=== PATIENT | female | born 1995 | race Caucasian/White ===

== ENCOUNTER 2016-10-10 00:30 | Emergency (ER) | payer OTHER ==
[2016-10-10 01:24] LABS: BILIRUBIN NEGATIVE (NEGATIVE); BLOOD NEGATIVE Ery/uL (NEGATIVE); CLARITY CLEAR (CLEAR); COLOR YELLOW (YELLOW); GLUCOSE (U) NORMAL (NORMAL); KETONE (U) NEGATIVE (NEGATIVE); LEUKOCYTES NEGATIVE Leu/uL (NEGATIVE); NITRITE NEGATIVE (NEGATIVE); PROTEIN NEGATIVE (NEGATIVE); SPECIFIC GRAVITY 1.025 (1.001-1.030); UROBILINOGEN 0.2 mg/dL (0.2-1.0); pH 6.5 (5.0-9.0)
[2016-10-10 01:32] LABS: BASOPHIL 0.3 % (0-2); HCT 41.7 % (37.0-47.0); HGB 14.3 g/dl (12.5-16.0); LYMPHOCYTE 20.9 % (15-48); MCH 31.5 pg (25.0-31.0); MCHC 34.3 g/dL (32.0-36.0); MCV 91.9 fL (78.0-100.0); MPV 10.7 fL (6.0-9.5); NEUTROPHIL 69.8 % (41-80); PLT 256 K/uL (150-400); RBC 4.54 M/uL (4.20-5.40); RDW 12.5 % (11.5-14.0); WBC 7.9 K/uL (4.0-10.5)
[2016-10-10 01:54] LABS: CREATININE 0.8 mg/dL (0.5-1.0); POTASSIUM 3.7 mmol/L (3.5-5.1)
== END 2016-10-10 02:25 | disposition home or self-care (01) ==
LOC: FER 00:30
PROVIDERS: Emergency Medicine
DX: R42 Dizziness and giddiness (principal); R55 Syncope and collapse; R11.2 Nausea with vomiting, unspecified
CPT/HCPCS: 36415; 80048; 81003; 85025

== ENCOUNTER 2020-08-27 19:13 | Emergency (ER) | payer OTHER ==
[~2020-08-27 19:13] MED LIST: ZOFRAN8 MG PO
== END 2020-08-27 20:35 | disposition home or self-care (01) ==
LOC: FER 19:13
DX: R25.2 Cramp and spasm (principal); F17.210 Nicotine dependence, cigarettes, uncomplicated
CPT/HCPCS: 99283

== ENCOUNTER 2021-02-20 21:08 | Emergency (ER) | payer OTHER ==
[2021-02-20 22:21] LABS: BASOPHIL 0.4 % (0-2); EOSINOPHIL 1.2 % (0-5); HCT 38.1 % (37.0-47.0); HGB 12.8 g/dl (12.5-16.0); LYMPHOCYTE 21.9 % (15-48); MCH 30.5 pg (25.0-31.0); MCHC 33.6 g/dL (32.0-36.0); MCV 90.9 fL (78.0-100.0); MONOCYTE 9.8 % (0-12); MPV 10.8 fL (6.0-9.5); NEUTROPHIL 66.5 % (41-80); NRBC 0; PLT 240 K/uL (150-400); RBC 4.19 M/uL (4.20-5.40); RDW 12.6 % (11.5-14.0); WBC 8.5 K/uL (4.0-10.5)
[2021-02-20 22:33] LABS: INR 1.14 (0.9-1.2); PTT 28.1 SECONDS (24.4-34.7)
[2021-02-20 22:35] LABS: D-DIMER < 0.27 ug/mLFEU (0.00-0.41)
[2021-02-20 22:42] LABS: ALBUMIN 3.9 g/dL (3.4-5.0); BILIRUBIN - TOTAL 0.2 mg/dL (0.2-1.0); BUN/CREAT RATIO (CALC) 16.7 RATIO; CREATININE 0.72 mg/dL (0.51-0.95); GLOBULIN (CALCULATION) 3.4 g/dL; POTASSIUM 3.7 mmol/L (3.5-5.1); TOTAL PROTEIN 7.3 g/dL (6.4-8.2)
[2021-02-20] MEDS ORDERED: ZPAK PO (23:37)
[2021-02-20] MEDS ORDERED: MEDROL 4MG DOSEP4 MG PO (23:37)
== END 2021-02-20 23:55 | disposition home or self-care (01) ==
LOC: FER 21:08
PROVIDERS: Emergency Medicine
DX: R07.89 Other chest pain (principal); F17.210 Nicotine dependence, cigarettes, uncomplicated
CPT/HCPCS: 36415; 71045; 80053; 84484; 85025; 85379; 85610; 85730; 93005

== ENCOUNTER 2021-04-09 16:25 | Emergency (ER) | payer OTHER ==
[~2021-04-09 16:25] MED LIST changes: +MEDROL 4MG DOSEP4 MG PO; +ZPAK PO
[2021-04-09 18:11] LABS: BASOPHIL 0.2 % (0-2); BILIRUBIN NEGATIVE (NEGATIVE); BLOOD NEGATIVE Ery/uL (NEGATIVE); CLARITY CLEAR (CLEAR); COLOR YELLOW (YELLOW); EOSINOPHIL 0.5 % (0-5); GLUCOSE (U) NORMAL (NORMAL); HCT 37.5 % (37.0-47.0); HGB 12.5 g/dl (12.5-16.0); LEUKOCYTES NEGATIVE Leu/uL (NEGATIVE); LYMPHOCYTE 17.6 % (15-48); MCH 30.3 pg (25.0-31.0); MCHC 33.3 g/dL (32.0-36.0); MCV 90.8 fL (78.0-100.0); MONOCYTE 7.2 % (0-12); MPV 10.7 fL (6.0-9.5); NEUTROPHIL 74.2 % (41-80); NITRITE NEGATIVE (NEGATIVE); NRBC 0; PLT 237 K/uL (150-400); PROTEIN NEGATIVE (NEGATIVE); RBC 4.13 M/uL (4.20-5.40); RDW 13.3 % (11.5-14.0); SPECIFIC GRAVITY 1.025 (1.001-1.030); UROBILINOGEN 0.2 mg/dL (0.2-1.0); WBC 9.1 K/uL (4.0-10.5)
[2021-04-09 18:28] LABS: BUN/CREAT RATIO (CALC) 16.2 RATIO; CREATININE 0.68 mg/dL (0.51-0.95); POTASSIUM 3.7 mmol/L (3.5-5.1)
== END 2021-04-09 19:30 | disposition home or self-care (01) ==
LOC: FER 16:25
PROVIDERS: Nurse Practitioner Family
DX: O99.891 Other specified diseases and conditions complicating pregnancy (principal); R10.2 Pelvic and perineal pain
CPT/HCPCS: 36415; 80048; 81003; 84702; 85025; 99284

== ENCOUNTER 2021-09-07 12:05 | Emergency (ER) | payer OTHER ==
[2021-09-07 12:47] LABS: BILIRUBIN NEGATIVE (NEGATIVE); BLOOD NEGATIVE Ery/uL (NEGATIVE); CLARITY CLEAR (CLEAR); COLOR YELLOW (YELLOW); GLUCOSE (U) NORMAL (NORMAL); LEUKOCYTES NEGATIVE Leu/uL (NEGATIVE); NITRITE NEGATIVE (NEGATIVE); PROTEIN NEGATIVE (NEGATIVE); UROBILINOGEN 0.2 mg/dL (0.2-1.0)
[2021-09-07 12:47] LABS: BASOPHIL 0.3 % (0-2); EOSINOPHIL 0.7 % (0-5); HCT 39.9 % (37.0-47.0); HGB 13.4 g/dl (12.5-16.0); LYMPHOCYTE 20.2 % (15-48); MCHC 33.6 g/dL (32.0-36.0); MCV 92.4 fL (78.0-100.0); MONOCYTE 8.2 % (0-12); MPV 10.7 fL (6.0-9.5); NEUTROPHIL 70.3 % (41-80); NRBC 0; PLT 226 K/uL (150-400); RBC 4.32 M/uL (4.20-5.40); RDW 12.4 % (11.5-14.0); WBC 6.7 K/uL (4.0-10.5)
[2021-09-07 13:02] LABS: BILIRUBIN - TOTAL 0.4 mg/dL (0.2-1.0); BUN/CREAT RATIO (CALC) 9.2 RATIO; CREATININE 0.76 mg/dL (0.51-0.95); GLOBULIN (CALCULATION) 3.5 g/dL; POTASSIUM 3.7 mmol/L (3.5-5.1); TOTAL PROTEIN 7.5 g/dL (6.4-8.2)
[2021-09-07 13:41] LABS: INFLUENZA A NAA NEGATIVE (NEGATIVE)
[2021-09-07 13:43] LABS: CORONAVIRUS 2019 SARS-COV-2 POSITIVE (NEGATIVE)
[2021-09-07] MEDS ORDERED: BENTYL10 MG PO (14:44)
[2021-09-07] MEDS ORDERED: ONDANSETRON HCL4 MG PO (14:44)
== END 2021-09-07 15:00 | disposition home or self-care (01) ==
LOC: FER 12:05
PROVIDERS: Nurse Practitioner Family
DX: U07.1 COVID-19 (principal); R10.84 Generalized abdominal pain; F17.210 Nicotine dependence, cigarettes, uncomplicated
CPT/HCPCS: 36415; 80053; 81003; 85025; J1885; J2405; J7030; Q9967; U0002